=== PATIENT | male | born 1935 ===

== ENCOUNTER 2017-06-02 09:32 | Outpatient (CLI) | payer MEDICARE | END 2017-06-02 09:33 | disposition home or self-care (01) | LOC: BICULT 09:32 | PROVIDERS: ATTEND Internal Medicine | DX: N18.3 Chronic kidney disease, stage 3 (moderate) (principal); N28.89 Other specified disorders of kidney and ureter; N28.1 Cyst of kidney, acquired | CPT/HCPCS: 76770 ==